=== PATIENT | female | born 1985 | race Asian ===

== ENCOUNTER 2023-07-11 23:46 | Emergency (ER) | payer OTHER ==
[~2023-07-11] VITALS: Ht 157.5 cm; Wt 71.7 kg
[2023-07-12] MEDS ORDERED: KETOROLAC TROMETHAMINE INJ 30 MG/ML VIAL IM ONE (00:30)
[2023-07-12] MEDS ORDERED: CYCLOBENZAPRINE 10 MG TABLET PO ONE (00:30)
[2023-07-12] MEDS ORDERED: KETOROLAC TROMETHAMINE INJ 30 MG/ML VIAL ONE (00:34)
[2023-07-12] MEDS ORDERED: CYCLOBENZAPRINE 10 MG TABLET ONE (00:35)
[2023-07-12] MEDS ORDERED: KETO10TA2 PO (01:25)
[2023-07-12] MEDS ORDERED: CYCL5TAB PO (01:25)
[2023-07-12 01:30] VITALS: BP 145/96; TEMP 98; O2SAT 100
== END 2023-07-12 01:31 | disposition home or self-care (01) ==
LOC: ER 23:50
DX: M25.511 Pain in right shoulder (principal); M54.10 Radiculopathy, site unspecified
CPT/HCPCS: 99283; 96372; J1885

== ENCOUNTER 2023-09-18 16:48 | Emergency (ER) | payer OTHER ==
[~2023-09-18] VITALS: Ht 157.5 cm; Wt 70.8 kg
[~2023-09-18 16:48] MED LIST: CYCL5TAB PO; KETO10TA2 PO
[2023-09-18] MEDS ORDERED: CIPR5DRO LEFTEYE (17:21)
[2023-09-18 17:29] VITALS: BP 153/95; TEMP 98; O2SAT 98
== END 2023-09-18 17:30 | disposition home or self-care (01) ==
LOC: ER 16:53
DX: H10.9 Unspecified conjunctivitis (principal)